=== PATIENT | female | born 1955 | race Caucasian/White ===

== ENCOUNTER 2020-07-11 14:34 | Outpatient (CLI) | payer MEDICARE, SELFPAY ==
--- NOTE | 2020-07-11 14:42 | MM_ITS ---
WS: [id number] BILATERAL DIGITAL SCREENING MAMMOGRAM WITH CAD CLINICAL INFORMATION: SCREENING HISTORY: Screening mammogram. No current complaints. COMPARISON: April 17, 2018 TECHNIQUE: Bilateral CC and MLO views. FINDINGS: Fatty-replaced breasts bilaterally. No suspicious focal mass, asymmetry, calcifications, or linux architect ural distortion. No evidence of malignancy. MM/[place] [id number] IMPRESSION: BI-RADS: 1-Negative FOLLOW UP: 1 Year Follow-up Recommend return to annual screening mammography.
--- NOTE | 2020-07-11 15:11 | XR_ITS ---
WS: [id number] DEXA (DUAL ENERGY X-RAY ABSORPTIOMETRY) Bone mineral density was performed using a [employer] machine. HISTORY: ASYMPTOMATIC MENOPAUSAL STATE COMPARISON: None available. Lumbar spine BMD (L1-L4): 1.031 g/cm2 T score: -1.2 Z score: -0.6 Total hip BMD: Left: 0.833 g/cm2. T score: -1.4 Z score: -0.8 Right: 0.794 g/cm2. T score: -1.7 Z score: -1.1 10 year probability of a major osteoporotic fracture is 16%. XR/XR DEXA axial skeleton* [id number] IMPRESSION: OSTEOPENIA based upon the WHO classification for females.
== END 2020-07-11 14:35 | disposition home or self-care (01) ==
LOC: RADSHAW 14:39
PROVIDERS: Visit Provider Nurse Practitioner
DX: Z12.31 Encounter for screening mammogram for malignant neoplasm of breast (principal); Z78.0 Asymptomatic menopausal state; M85.89 Other specified disorders of bone density and structure, multiple sites
CPT/HCPCS: 77067; 77080

== ENCOUNTER 2021-08-11 10:07 | Outpatient (CLI) | payer MEDICARE, SELFPAY ==
--- NOTE | 2021-08-11 10:16 | MM_ITS ---
WS: [id number] Bilateral screening digital mammogram, 08/11/2021 Clinical Data: SCREENING Comparison: 8 07/11/2020, 04/17/2018, 05/11/2016, 03/04/2015, 06/06/2007 Findings: The breast parenchymal pattern shows fat replacement. No spiculated masses or clustered calcification s are seen. There are no secondary signs of carcinoma. There are mole markers on both breasts. There are small lymph nodes in both axilla. MM/[place] [id number] Impression: 1. Negative bilateral mammogram unchanged. 2. Recommend annual screening mammograms. BIRADS: 1-Negative FOLLOW UP: 1 Year Follow-up The CAD schedule checker was used.
== END 2021-08-11 10:08 | disposition home or self-care (01) ==
LOC: RADSHAW 10:12
PROVIDERS: Visit Provider Nurse Practitioner
DX: Z12.31 Encounter for screening mammogram for malignant neoplasm of breast (principal)
CPT/HCPCS: 77067

== ENCOUNTER → 2022-12-31 10:16 | Outpatient (BNVA) | payer MEDICARE, SELFPAY | PROVIDERS: PCP Clinical Nurse Specialist Adult Health; Visit Provider Clinical Nurse Specialist Adult Health | DX: Z00.00 Encounter for general adult medical examination without abnormal findings (principal); I10 Essential (primary) hypertension; F41.1 Generalized anxiety disorder | CPT/HCPCS: 80053; 80061; 84443; 85025 ==

== ENCOUNTER → 2023-07-03 12:47 | Outpatient (BNVA) | payer MEDICARE, SELFPAY | PROVIDERS: PCP Clinical Nurse Specialist Adult Health; Visit Provider Clinical Nurse Specialist Adult Health | DX: E55.9 Vitamin D deficiency, unspecified (principal); G62.9 Polyneuropathy, unspecified | CPT/HCPCS: 82306; 82607 ==

== ENCOUNTER → 2023-08-06 12:39 | Outpatient (BNVA) | payer MEDICARE, SELFPAY | PROVIDERS: PCP Clinical Nurse Specialist Adult Health; Visit Provider Clinical Nurse Specialist Adult Health | DX: J02.9 Acute pharyngitis, unspecified (principal) | CPT/HCPCS: 87071; 87880 ==

== ENCOUNTER → 2023-10-29 11:20 | Outpatient (BNVA) | payer MEDICARE, SELFPAY | PROVIDERS: PCP Clinical Nurse Specialist Adult Health; Visit Provider Clinical Nurse Specialist Adult Health | DX: I10 Essential (primary) hypertension (principal); R73.01 Impaired fasting glucose; Z79.899 Other long term (current) drug therapy | CPT/HCPCS: 80053; 82306; 83036; 85025; 85651; 86140 ==

== ENCOUNTER → 2024-01-14 11:47 | Outpatient (BNVA) | payer MEDICARE, SELFPAY | PROVIDERS: PCP Clinical Nurse Specialist Adult Health; Visit Provider Clinical Nurse Specialist Adult Health | DX: E11.9 Type 2 diabetes mellitus without complications (principal); K21.9 Gastro-esophageal reflux disease without esophagitis; E66.01 Morbid (severe) obesity due to excess calories | CPT/HCPCS: 80053; 83036 ==

== ENCOUNTER → 2024-04-14 11:33 | Outpatient (BNVA) | payer MEDICARE, SELFPAY | PROVIDERS: PCP Clinical Nurse Specialist Adult Health; Visit Provider Clinical Nurse Specialist Adult Health | DX: E11.9 Type 2 diabetes mellitus without complications (principal) | CPT/HCPCS: 80053; 80061; 83036; 85025 ==

== ENCOUNTER → 2024-06-22 12:39 | Outpatient (BNVA) | payer MEDICARE, SELFPAY | PROVIDERS: PCP Clinical Nurse Specialist Adult Health; Visit Provider Clinical Nurse Specialist Adult Health | DX: E55.9 Vitamin D deficiency, unspecified (principal); E11.9 Type 2 diabetes mellitus without complications; E87.6 Hypokalemia | CPT/HCPCS: 80053; 82306; 83036; 85025 ==

== ENCOUNTER → 2025-01-18 13:49 | Outpatient (BNVA) | payer MEDICARE, SELFPAY | PROVIDERS: PCP Clinical Nurse Specialist Adult Health; Visit Provider Clinical Nurse Specialist Adult Health | DX: Z78.0 Asymptomatic menopausal state (principal); E11.9 Type 2 diabetes mellitus without complications; E55.9 Vitamin D deficiency, unspecified; M79.672 Pain in left foot; L98.9 Disorder of the skin and subcutaneous tissue, unspecified; I10 Essential (primary) hypertension; J30.2 Other seasonal allergic rhinitis; K21.9 Gastro-esophageal reflux disease without esophagitis | CPT/HCPCS: 73630; 80053; 80061; 82306; 82607; 83036; 85025 ==

== ENCOUNTER 2025-01-27 12:34 | Outpatient (CLI) | payer MEDICARE, SELFPAY ==
--- NOTE | 2025-01-27 12:40 | MM_ITS ---
WS: [id number] BILATERAL 3D TOMOSYNTHESIS DIGITAL SCREENING MAMMOGRAPHY WITH CAD CLINICAL INFORMATION: Z12.39 - Encounter for other screening for malignant neop... HISTORY: Screening mammogram. No current complaints. COMPARISON: 2020 TECHNIQUE: Bilateral CC and MLO views. FINDINGS: Scattered fibroglandular densities bilaterally. No suspicious focal mass, asymmetry, calcifications, or architectural distortion. No evidence of malignancy. A few incidental punctate calcifications. MM/MM [facility] tomosynthesis [id number] IMPRESSION: DENSITY: There are scattered areas of fibroglandular density. BI-RADS: 2 - Benign. FOLLOW UP: 1 Year Follow-up Recommend return to annual screening mammography.
--- NOTE | 2025-01-27 13:00 | XR_ITS ---
WS: [email or web address] DEXA (DUAL ENERGY X-RAY ABSORPTIOMETRY) Bone mineral density was performed using a [employer] machine. HISTORY: Z78.0 - Asymptomatic menopausal state COMPARISON: 07/11/2020 Lumbar spine BMD (L1-L4): 1.055 g/cm2 T score: -1.0 Z score: 0.0 Total hip BMD: Left: 0.783 g/cm2. T score: -1.8 Z score: -0.7 Right: 0.744 g/cm2. T score: -2.1 Z score: -1.0 10 year probability of a major osteoporotic fracture is 13.3%. Compared to the prior study from 07/11/2020. Lumbar spine bone mineral density has increased by 2.3%. Bilateral hips bone mineral density has decreased by 6.3%. XR/XR DEXA axial skeleton* [id number] IMPRESSION: OSTEOPENIA based upon the WHO classification for females. Significant increase in bone mineral density within the lumbar spine since the prior study. Significant decrease in bone mineral density within the hips since the prior st [facility].
== END 2025-01-27 12:35 | disposition home or self-care (01) ==
PROVIDERS: PCP Clinical Nurse Specialist Adult Health; Visit Provider Clinical Nurse Specialist Adult Health
DX: Z12.31 Encounter for screening mammogram for malignant neoplasm of breast (principal); Z78.0 Asymptomatic menopausal state; M85.80 Other specified disorders of bone density and structure, unspecified site; R92.323 Mammographic fibroglandular density, bilateral breasts; R92.1 Mammographic calcification found on diagnostic imaging of breast
CPT/HCPCS: 77063; 77067; 77080

== ENCOUNTER 2025-02-04 12:06 | Outpatient (CLI) | payer MEDICARE, SELFPAY ==
--- NOTE | 2025-02-04 12:45 | US_ITS ---
WS: [id number] Subcutaneous ultrasound of the medial right humerus and arm, 02/04/2025 Clinical Data: R22.31 - Localized swelling, mass and lump, right upper limb Comparison: None. Findings: There is a 0.8 x 1.4 cm subcutaneous nodule with mixed echotexture. No fluid- fluid level is seen. The border is smooth and well outlined. No significant blood flow is seen. US/US soft tissue/extremity [id number] Impression: Subcutaneous nodule with greatest dimension 1.4 cm which could represent a soft tissue lesion but there are no specific characteristics.
== END 2025-02-04 12:07 | disposition home or self-care (01) ==
PROVIDERS: PCP Clinical Nurse Specialist Adult Health; Visit Provider Clinical Nurse Specialist Adult Health
DX: R22.31 Localized swelling, mass and lump, right upper limb (principal); M20.42 Other hammer toe(s) (acquired), left foot
CPT/HCPCS: 73630; 76882

== ENCOUNTER 2025-02-25 13:37 | Outpatient (CLI) | payer MEDICARE, SELFPAY ==
--- NOTE | 2025-02-25 14:00 | CT_ITS ---
WS: [id number] CT RIGHT HUMERUS, NONCONTRAST HISTORY: R22.31 - Localized swelling, mass and lump, right upper limb Technique: All CT scans at [facility] use at least one of these dose optimization techniques: automated exposure control; mA and/or kV adjustment per patient size (includes targeted exams where dose is matched to clinical indication); or iterative reconstruction. DLP: 824.31 mGy.cm COMPARISON: Soft tissue ultrasound 02/04/2025 Marker is placed in the site of the palpable abnormality. Palpable abnormality corresponds to a nearly isodense nodule measuring 1.4 x 1.2 cm along the posterior distal third of the humerus. This is embedded by the triceps muscle. There is a small amount of surrounding fat. This is a very nonspecific finding. No significant amount of edema is noted radiographically. No additional soft tissue or muscle abnormality identified. No destructive bone lesions. No fractures. Mild AC joint arthritis. CT/CT humerus RT wo con* [id number] IMPRESSION: 1. Very subtle, nearly isodense nodule in the soft tissues of the distal poste rior RIGHT humerus. Nodule measures 1.4 x 1.2 cm. This will need to be further evaluated by MRI. This may be a soft tissue tumor. Suspect this also may be a t orn triceps tendon with retraction. Recommend follow-up MRI RIGHT humerus with and without contrast. MRI should be centered in the distal third of the humerus to include the elbow and the triceps insertion site. 2. No fractures.
== END 2025-02-25 13:38 | disposition home or self-care (01) ==
LOC: RAD 13:38
PROVIDERS: PCP Clinical Nurse Specialist Adult Health; Visit Provider Clinical Nurse Specialist Adult Health
DX: R22.31 Localized swelling, mass and lump, right upper limb (principal)
CPT/HCPCS: 73200

== ENCOUNTER 2025-03-10 06:48 | Outpatient (CLI) | payer MEDICARE, SELFPAY ==
--- NOTE | 2025-03-10 07:15 | MR_ITS ---
WS: [email or web address] MRI RIGHT HUMERUS WITH AND WITHOUT CONTRAST. COMPARISON: CT 02/25/2025 and soft tissue ultrasound 02/04/2025 Multiplanar, multisequence imaging is performed with and without contrast. MultiHance 17 mL IV. MRI is focused on the posterior inferior RIGHT humerus in the area of the palpable abnormality. There is a mass centered within the distal triceps muscle measuring 1.4 x 1.2 x 1.7 cm. Mass is of increased signal on the T2 sequences and does not completely fat suppressed. There is just slight bulging of the contour of the triceps muscle. There is no involvement of the adjacent bone. On the postcontrast sequences there is diffuse enhancement and a small feeder vessel is noted extending from superior into the mass. There is a small amount of surrounding edema. No punctate calcifications. MR/MR humerus RT wo/w con [id number] IMPRESSION: 1. Enhancing well-circumscribed mass in the distal triceps muscle measures 1.4 x 1.2 x 1.7 cm. There is a small amount of adjacent surrounding edema. No incr eased vascularity was noted on ultrasound. Recommend surgical biopsy for pathol ogy. 2. No additional mass is identified.
[2025-03-10] MEDS: gadobenate dimeglumine 20 mL vial 17 ML IV (07:55)
== END 2025-03-10 06:49 | disposition home or self-care (01) ==
LOC: RAD 06:49
PROVIDERS: PCP Clinical Nurse Specialist Adult Health; Visit Provider Clinical Nurse Specialist Adult Health
DX: R22.31 Localized swelling, mass and lump, right upper limb (principal)
CPT/HCPCS: 73220; A9577

== ENCOUNTER → 2025-03-16 09:56 | Outpatient (BNVA) | payer MEDICARE, SELFPAY | PROVIDERS: PCP Clinical Nurse Specialist Adult Health; Visit Provider Nurse Practitioner Family | DX: L21.8 Other seborrheic dermatitis (principal); W89.1XXA Exposure to tanning bed, initial encounter; I83.93 Asymptomatic varicose veins of bilateral lower extremities; L82.1 Other seborrheic keratosis; D18.01 Hemangioma of skin and subcutaneous tissue; L81.4 Other melanin hyperpigmentation; L57.8 Other skin changes due to chronic exposure to nonionizing radiation; Z12.83 Encounter for screening for malignant neoplasm of skin; L82.0 Inflamed seborrheic keratosis; L53.8 Other specified erythematous conditions; Z78.9 Other specified health status; R20.8 Other disturbances of skin sensation; L57.0 Actinic keratosis | CPT/HCPCS: 17000; 17110; 99204 ==

== ENCOUNTER → 2025-03-30 07:49 | Outpatient (BNVA) | payer MEDICARE, SELFPAY | PROVIDERS: PCP Clinical Nurse Specialist Adult Health; Visit Provider Podiatrist Foot & Ankle Surgery | DX: E11.40 Type 2 diabetes mellitus with diabetic neuropathy, unspecified (principal); M20.41 Other hammer toe(s) (acquired), right foot; M20.42 Other hammer toe(s) (acquired), left foot | CPT/HCPCS: 99214 ==

== ENCOUNTER → 2025-07-12 14:04 | Outpatient (BNVA) | payer MEDICARE, SELFPAY | PROVIDERS: PCP Clinical Nurse Specialist Adult Health; Visit Provider Clinical Nurse Specialist Adult Health | DX: E11.9 Type 2 diabetes mellitus without complications (principal) | CPT/HCPCS: 80053; 80061; 82607; 83036; 85025 ==